=== PATIENT | male | born 1945 | race Caucasian/White ===

== ENCOUNTER 2020-10-10 22:15 | Emergency (ER) | payer OTHER ==
--- NOTE | 2020-10-10 22:34 | EDM.PDOC ---
ED HPI GENERAL MEDICAL PROBLEM - General Chief Complaint: General Stated Complaint: hematuria Time Seen by Provider: 10/10/20 22:32 Source of Information: Reports: Patient History Limitations: Reports: No Limitations - History of Present Illness INITIAL COMMENTS - FREE TEXT/NARRATIVE: Yefri is a 75 yo male who presents to the ED with complaints of blood in his urine. States he noticed some yesterday and didn't think much of it. Knew it wasn't normal but didn't know what to do about it. States this evening he had a larger amount of blood and severe discomfort with urination, which made him stop voiding. States he has been having some flank pain the last couple of days but nothing of any significance. Admits to history of elevated PSA numbers but denies having it checked in a long time. States they quit checking it at the [facility] a few years ago. Denies any history of prostatitis. States currently he is asymptomatic. Penis Pain Score (Numeric/FACES): 7 - Related Data Allergies Allergy/AdvReac Type Severity Reaction Status Date / Time No Known Allergies Allergy Verified 10/10/20 22:30 Home Meds: Home Meds Aspirin 81 mg PO DAILY 10/10/20 [History] Vitamin B Complex 0.5 mg PO BID 10/10/20 [History] Past Medical History - Past Health History Medical/Surgical History: Denies Medical/Surgical History HEENT History: Reports: None Cardiovascular History: Reports: None Respiratory History: Reports: None Gastrointestinal History: Reports: None Genitourinary History: Reports: Prostate Disorder (history of elevated PSA levels). Denies: BPH, Renal Calculus Musculoskeletal History: Reports: Other (See Below) (chronic arthralgias) Psychiatric History: Reports: None Endocrine/Metabolic History: Reports: None Social & Family History - Tobacco Use Tobacco Use Status *Q: Former Tobacco User Tobacco Use Within Last Twelve Months: Pipe - Alcohol Use Alcohol Use History: No ED ROS GENERAL - Review of Systems Review Of Systems: Comprehensive ROS is negative, except as noted in HPI. ED EXAM, GENERAL - Physical Exam Exam: See Below Exam Limited By: No Limitations General Appearance: Alert, WD/WN, No Apparent Distress Head: Atraumatic, Normocephalic Neck: Normal Inspection, Supple Respiratory/Chest: No Respiratory Distress, Lungs Clear, Normal Breath Sounds, No Accessory Muscle Use Cardiovascular: Regular Rate, Rhythm, No Murmur GI/Abdominal: Normal Bowel Sounds, Soft, Non-Tender, No Organomegaly, No Distention, No Abnormal Bruit, No Mass Extremities: Normal Inspection, No Pedal Edema Neurological: Alert, Oriented, Normal Cognition Psychiatric: Normal Affect, Normal Mood Course - Vital Signs Last Recorded V/S: Last Vital Signs Temp 98.2 F 10/10/20 22:30 Pulse 72 10/10/20 22:30 Resp 16 10/10/20 22:30 BP 150/65 H 10/10/20 22:30 Pulse Ox 95 10/10/20 22:30 - Orders/Labs/Meds Orders: Active Orders 24 hr Category Date Time Status Abdomen wo Cont [CT] Stat Exams 10/10/20 22:42 Taken Labs: Laboratory Tests 10/10/20 10/10/20 10/10/20 Range/Units 22:30 23:12 23:25 WBC 6.9 (5.0-10.0) 10^3/uL RBC 4.74 (4.50-6.00) 10^6/uL Hgb 14.7 (14.0-18.0) g/dL Hct 41.6 (40.0-54.0) % MCV 87.8 (82.0-94.0) fL MCH 31.0 (27.0-32.0) pg MCHC 35.3 (33.0-38.0) g/dL RDW Coeff of Shirin 12.5 (11.0-15.0) % Plt Count 167 (150-400) 10^3/uL Neut % (Auto) 76.3 (35-85) % Lymph % (Auto) 17.2 (10-55) % Giles % (Auto) 4.9 (0-16) % Eos % (Auto) 1.3 (0-5) % Baso % (Auto) 0.3 (0-3) % Neut # (Auto) 5.26 (1.80-7.00) 10^3/uL Lymph # (Auto) 1.19 (1.00-4.80) 10^3/uL Giles # (Auto) 0.34 (0.00-0.80) 10^3/uL Eos # (Auto) 0.09 (0.00-0.45) 10^3/uL Baso # (Auto) 0.02 10^3/uL Sodium 143 (136-145) mEq/L Potassium 4.0 (3.5-5.0) mEq/L Chloride 104 (98-106) mEq/L Carbon Dioxide 28 (21-32) mmol/L BUN 26 H (7-18) mg/dL Creatinine 1.0 (0.7-1.3) mg/dL Est Cr Clr Drug Dosing 58.21 mL/min Estimated GFR (MDRD) > 60 (>=60) mL/min Glucose 101 H (75-99) mg/dL Calcium 9.1 (8.4-10.1) mg/dL Urine Color Yellow (YELLOW) Urine Appearance Clear (CLEAR) Urine pH 5.5 (4.5-8.0) Ur Specific [place] >= 1.030 H (1.003-1.020) Urine Protein Negative (NEGATIVE) mg/dL Urine Glucose (UA) Negative (NEGATIVE) mg/dL Urine Ketones Negative (NEGATIVE) mg/dL Urine Occult Blood Moderate H (NEGATIVE) Urine Nitrite Negative (NEGATIVE) Urine Bilirubin Negative (NEGATIVE) Urine Urobilinogen 0.2 (0.2-1.0) EU/dL Ur Leukocyte Esterase Negative (NEGATIVE) Urine RBC 50-75 H (0-5) /HPF Urine WBC 0-5 (0-5) /HPF Urinalysis Comment Departure - Departure Time of Disposition: 00:02 Disposition: Home, Self-Care 01 Clinical Impression: Prostate enlargement Hematuria Qualifiers: Hematuria type: unspecified type Qualified Code(s): R31.9 - Hematuria, unspecified - Discharge Information Instructions: Benign Prostatic Hyperplasia, Hematuria, Adult Forms: ED Department Discharge Additional Instructions: CT of the abdomen/pelvis did not show any obstructing stones. Constipation was noted. Recommend taking stool softener if difficulty with bowel movements. Prostate enlargement seen, which could be cause of bleeding vs passing of kidney stone. Follow up with primary provider for hematuria (blood in urine), recommend seeing urology If difficulty with urination or unable to void, will need urinary catheter and recommend returning to hospital May increase water intake as well Sepsis Event Note (ED) - Focused Exam Vital Signs: Vital Signs Temp Pulse Resp BP Pulse Ox 10/10/20 22:30 98.2 F 72 16 150/65 H 95 - Problem List & Annotations (1) Hematuria SNOMED Code(s): 31701595 Code(s): R31.9 - HEMATURIA, UNSPECIFIED Status: Acute Current Visit: Yes Qualifiers: Hematuria type: unspecified type Qualified Code(s): R31.9 - Hematuria, unspecified (2) Prostate enlargement SNOMED Code(s): 083294489 Code(s): N40.0 - BENIGN PROSTATIC HYPERPLASIA WITHOUT LOWER URINRY TRACT SYMP Status: Acute Current Visit: Yes - My Orders Last 24 Hours: My Active Orders 10/10/20 22:42 Abdomen wo Cont [CT] Stat - Assessment/Plan Admission H&P: Please use this note as an admission H&P Last 24 Hours: My Active Orders 10/10/20 22:42 Abdomen wo Cont [CT] Stat Plan: See additional instructions. Patient was asymptomatic with voiding on arrival.
[2020-10-10 23:30] LABS: CHLORIDE,CL 104 mEq/L (98-106); SODIUM,NA 143 mEq/L (136-145)
== END 2020-10-11 00:12 | disposition home or self-care (01) ==
LOC: CC.ED 22:15
DX: N40.0 Benign prostatic hyperplasia without lower urinary tract symptoms (principal); R31.9 Hematuria, unspecified; Z79.82 Long term (current) use of aspirin; Z87.891 Personal history of nicotine dependence
CPT/HCPCS: 36415; 74150; 80048; 81001; 85025; 99284; 99284-25